=== PATIENT | male | born 2000 | race Caucasian/White ===

== ENCOUNTER 2023-12-17 01:30 | Emergency (ER) | payer OTHER ==
[~2023-12-17] VITALS: Ht 190.5 cm; Wt 85.7 kg
[2023-12-17 01:31] VITALS: TEMP 98
[2023-12-17 05:30] VITALS: BP 135/86; O2SAT 97
== END 2023-12-17 06:06 | disposition left against medical advice (07) ==
LOC: M ED 01:30
DX: Z53.21 Procedure and treatment not carried out due to patient leaving prior to being seen by health care provider (principal)

== ENCOUNTER → 2024-06-01 | Outpatient (REF) | LOC: M PLAIMG 10:40 | PROVIDERS: ATTEND Nurse Practitioner Family | DX: R52 Pain, unspecified (principal) ==